=== PATIENT | female | born 1990 | race Two or more races ===

== ENCOUNTER → 2024-09-19 | Outpatient (CLI) | payer OTHER, SELFPAY ==
[2024-09-19 10:30] LABS: Cardiac Risk Estimate 2.5 RATIO (3.7-5.6); Cholesterol 143 mg/dL (132-200); Free T3 2.7 pg/mL (2.3-4.2); Free T4 (Free Thyroxine) 1.17 ng/dL (0.89-1.76); HDL Cholesterol 58 mg/dL (40-60); LDL Cholesterol,Calculated 75 mg/dL (0-130); Thyroid Stimulating Hormone 0.84 uIU/mL (0.55-4.78); Triglycerides 48 mg/dL (30-150)
[2024-09-19 10:43] LABS: Collection Type, Urine Clean Catch
[2024-09-19 10:50] LABS: Folate > 24.00 ng/mL (>5.38); Vitamin B12 624 pg/mL (211-911); Vitamin D 25 Hydroxy Total 30.1 ng/mL (7.3-40.2)
[2024-09-19 11:08] LABS: Glucose Estimated Average 117 mg/dL (80-131); Hemoglobin A1C 5.7 % Hgb (4.8-6.0)
[2024-09-19 11:50] LABS: Bacteria,Urine 3+; Bilirubin,Urine Negative (Negative); Blood,Urine Negative (Negative); Color,Urine Yellow (Lt Yel-Yel); Glucose, Urine Negative (Negative); Ketones,Urine Negative (Negative); Leukocyte Esterase,Urine Negative (Negative); Nitrite,Urine Negative (Negative); PH,Urine 6.5 (5.0-7.0); Protein,Urine Trace (Neg - Trace); RBC,Urine 1 /hpf (0-3); Specific Gravity,Urine 1.025 (1.001-1.035); Squamous Epithelial Cell,Urine 3 /hpf (0-5); Urobilinogen,Urine Negative mg/dL (0.0-1.0); WBC,Urine 2 /hpf (0-5)
[2024-09-19 11:57] LABS: Clarity,Urine Hazy (Clear/Hazy); Culture Indicated,Urine Yes
== END | disposition home or self-care (01) ==
LOC: COPL 09:06
PROVIDERS: PCP Family Medicine; Referring Provider Nurse Practitioner; Visit Provider Nurse Practitioner
DX: Z13.1 Encounter for screening for diabetes mellitus (principal); R53.83 Other fatigue
CPT/HCPCS: 36415; 80061; 81001; 82306; 82607; 82746; 83036; 84439; 84443; 84481; 87086